=== PATIENT | male | born 1955 | race Two or more races ===

== ENCOUNTER → 2016-09-12 | Outpatient (CLI) | payer BC | LOC: SP 10:50 | PROVIDERS: ATTEND Internal Medicine | DX: R42 Dizziness and giddiness (principal) | CPT/HCPCS: 93880 ==

== ENCOUNTER 2017-02-04 11:19 | Emergency (ER) | payer OTHER, BC ==
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
[2017-02-04 11:35] VITALS: BP 131/94
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
== END 2017-02-04 12:27 | disposition home or self-care (01) ==
LOC: ER 11:19
DX: S16.1XXA Strain of muscle, fascia and tendon at neck level, initial encounter (principal); S00.83XA Contusion of other part of head, initial encounter; V49.40XA Driver injured in collision with unspecified motor vehicles in traffic accident, initial encounter; I10 Essential (primary) hypertension
CPT/HCPCS: 70486; 72125; 99283

== ENCOUNTER 2017-02-08 11:36 | Emergency (ER) | payer BC, OTHER ==
[2017-02-08] MEDS ORDERED: IBUPROFEN 800 MG TABLET PO ONE (12:18)
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
[2017-02-08 13:55] VITALS: BP 107/79
--- NOTE | 2017-02-09 15:04 | RADIOLOGY REPORT (SQ) ---
EXAM DESCRIPTION: CT HEAD WITHOUT COMPLETED DATE/TIME: 02/08/2017, 1226 hours REASON FOR STUDY: CT brain without contrast COMPARISON: CT cervical spine and CT facial bones 02/04/2017 TECHNIQUE: Non contrasted CT brain was performed, reviewed at bone, subdural, and brain parenchymal windows. RADIATION DOSE: 64 point mGy LIMITATIONS: None FINDINGS: Bone windows demonstrate no calvarial fracture. Paranasal sinuses, mastoid air cells are clear. Brain parenchymal windows and subdural windows demonstrate no CT evidence of acute large territory is chemic change, acute intracranial hemorrhage, mass effect, or midline shift. There is mild biparietal low attenuation in the periventricular white matter from chronic small vesse l disease. Benign falx and choroid plexus calcifications. This report was discussed with Alisia in the emergency room. IMPRESSION: No acute changes.
== END 2017-02-08 13:55 | disposition home or self-care (01) ==
LOC: ER 11:36
DX: R51 Headache (principal); V49.40XA Driver injured in collision with unspecified motor vehicles in traffic accident, initial encounter; I10 Essential (primary) hypertension; F17.210 Nicotine dependence, cigarettes, uncomplicated; Z71.6 Tobacco abuse counseling
CPT/HCPCS: 70450; 99283